=== PATIENT | male | born 1945 | race American Indian/Alaskan Native ===

== ENCOUNTER 2022-06-18 10:31 | Outpatient (CLI) | payer MEDICARE, OTHER | END 2022-06-18 10:32 | disposition home or self-care (01) | LOC: ECHO 10:31 | PROVIDERS: ATTEND Internal Medicine | DX: I08.1 Rheumatic disorders of both mitral and tricuspid valves (principal); I42.0 Dilated cardiomyopathy; Z86.73 Personal history of transient ischemic attack (TIA), and cerebral infarction without residual deficits | CPT/HCPCS: 93306; C8929 ==